=== PATIENT | female | born 1980 | race Two or more races ===

== ENCOUNTER → 2022-09-15 | Emergency (ER) | payer SELFPAY ==
[~2022-09-15] VITALS: Ht 177.8 cm; Wt 61.7 kg
[2022-09-15 16:50] VITALS: BP 122/67
--- NOTE | 2022-09-15 17:22 | NUR ---
DIANE - - PLEASE CALL OR KEEP HER POSTED - BEST FRIEND.
--- NOTE | 2022-09-15 17:23 | NUR ---
ZAHEER BONILLA ([facility]) [phone]
--- NOTE | 2022-09-15 18:20 | NUR ---
CALLED TO ROOM-IN,NO ANSWER
== END ==
LOC: ER 17:00
DX: Z53.21 Procedure and treatment not carried out due to patient leaving prior to being seen by health care provider (principal)